=== PATIENT | female | born 1940 | race Caucasian/White ===

== ENCOUNTER → 2017-02-26 | Outpatient (CLI) | payer MEDICARE ==
[~2017-02-26] MED LIST: AMBI10TA PO; B-12100010 PO; FLUO20CA8 PO; FURO20TA2 PO; HYDR-3713 PO; LANTINJ4 SC; METO25TA74 PO; NEUR300C PO; NYST10CR TOP; PLAV75TA38 PO; PRAV20TA2 PO; PREG50CA PO; PROT20TA11 PO; SYNT175T2 PO; VESI10TA PO; VITAMIN B 12 PO
--- NOTE | 2017-02-26 13:21 | REP ---
Clinical: Lower extremity edema . Technique: Le scale and color Doppler evaluation using linear high frequency transducer. Findings: Ultrasound examination of the right and left lower extremity deep venous structures from the common femoral vein to the popliteal vein demonstrates normal compressibility flow and wave patterns in response to respiration and augmentation. There is no evidence for deep venous thrombosis. Diffuse subcutaneous edema and few scattered inguinal lymph nodes noted. Impression: No evidence for deep venous thrombosis. Signed by Sj Cabrales MD 02/26/2017 01:11 P
== END ==
LOC: M RAD 12:12
PROVIDERS: ATTEND Internal Medicine Cardiovascular Disease
DX: R60.0 Localized edema (principal); R06.02 Shortness of breath

== ENCOUNTER → 2017-02-27 | Outpatient (REF) | payer MEDICARE | LOC: M LAB REF 09:24 | PROVIDERS: ATTEND Internal Medicine Cardiovascular Disease | DX: D64.9 Anemia, unspecified (principal) ==

== ENCOUNTER → 2017-04-08 | Outpatient (REF) | payer MEDICARE ==
[~2017-04-08] MED LIST changes: +METO1TAB32 PO; -METO25TA74 PO; +PLAV1TAB2 PO; -PLAV75TA38 PO; -VESI10TA PO; +VESI10TA2 PO
== END ==
LOC: M SMT 17:17
PROVIDERS: ATTEND Urology
DX: Z85.51 Personal history of malignant neoplasm of bladder (principal); Z79.4 Long term (current) use of insulin; Z79.899 Other long term (current) drug therapy
CPT/HCPCS: 52000; 85610; 88108; G0463

== ENCOUNTER → 2017-05-26 | Outpatient (CLI) | payer MEDICARE ==
[2017-05-26 10:39] LABS: MEAN CORPUSCULAR HEMOGLOBIN 27.3 pg (27.0-33.0); MEAN CORPUSCULAR HGB CONC 32.1 g/dl (32.0-36.5); MEAN CORPUSCULAR VOLUME 85.1 fl (80.0-96.0); RED CELL DISTRIBUTION WIDTH 14.3 % (11.5-14.5); WHITE BLOOD COUNT 7.1 K/mm3 (4.0-10.0)
[2017-05-26 11:18] LABS: ALBUMIN 3.3 GM/DL (3.2-5.2); ALBUMIN/GLOBULIN RATIO 0.97 (1.00-1.93); BILIRUBIN,TOTAL 0.4 MG/DL (0.2-1.0); CALCIUM LEVEL 8.4 MG/DL (8.8-10.2); CREATININE FOR GFR 1.31 MG/DL (0.55-1.02); GLOMERULAR FILTRATION RATE 42.1 (>39); TOTAL PROTEIN 6.7 GM/DL (6.4-8.2)
[2017-05-26 11:20] LABS: POTASSIUM SERUM 5.3 MEQ/L (3.5-5.1)
== END ==
LOC: M LAB 09:58
PROVIDERS: ATTEND Family Medicine
DX: D64.9 Anemia, unspecified (principal); Z79.899 Other long term (current) drug therapy; E11.9 Type 2 diabetes mellitus without complications; R53.83 Other fatigue

== ENCOUNTER → 2017-07-06 | Outpatient (CLI) | payer MEDICARE ==
[~2017-07-06] MED LIST changes: +E-Z-GAS II EFFERVESCENT PACKET (SODIUM BICARB./CITRIC ACID/SIMETHICONE) As Ordered ONE; +E-Z-HD 98% w/w 340GM SUSP BTL As Ordered ONE; +E-Z-PAQUE 96% w/w SUSP 176GM BTL As Ordered ONE
--- NOTE | 2017-07-06 09:42 | REP ---
RIGHT UPPER QUADRANT SONOGRAPHY: HISTORY: Abdominal pain. Gastroesophageal reflux disease. COMPARISON: Right upper quadrant sonography, July 10, 2013. FINDINGS: Scanning through the right upper quadrant of the abdomen demonstrates tenderness to scanning over a normal sized gallbladder. Gallbladder wall is less than 3 mm thick. There is a 1.5 cm echogenic structure in the neck of the gallbladder consistent with a gallstone. This does not demonstrate acoustic shadowing however and, therefore, could be sludge. There is tenderness to scanning over the gallbladder. The common bile duct is mildly dilated at 8 mm. The portal vein is slightly prominent at 13.5 mm. No focal liver lesion is seen. The liver does not appear enlarged. There is no evidence of ascites. Limited views of the pancreas show no abnormality. The right kidney measures 11.3 x 5.4 x 4.0 cm. No hydronephrosis, mass, or cyst is seen. IMPRESSION: Cholelithiasis versus sludge ball. Dilated common bile duct, 8 mm. Borderline caliber portal vein. Signed by Fran Holliday MD 07/06/2017 03:27 P
--- NOTE | 2017-07-06 15:08 | REP ---
UPPER GI EXAMINATION: The procedure is performed by GM Parks under the direct supervision of the Dr. Holliday. All imaging was reviewed with Dr Holliday prior to dictation. The gym instructor film showed no organomegaly or pathological masses. The patient was able to ingest liquid barium and air in a quantity sufficient to produce a double contrast examination. The oral and pharyngeal stages of deglutition appeared unremarkable. Esophageal transport was prompt and efficient. The esophagus was rather patulous. There was hypercontractility of the distal portion of the esophagus. This hypercontractility is consistent with a history of esophagitis, correlate clinically. The patient has a history of gastric bypass. The visualized portion of the stomach pouch was normal. There was no evidence of gastritis, neoplasm or ulcerative disease. At fluoroscopy the visualized portion of the small bowel loops appeared somewhat dilated. Please correlate clinically. IMPRESSION: Hypercontractility of the esophagus in the distal portion consistent with a history of esophagitis. Postsurgical changes consistent with the patient's history of gastric bypass surgery. Somewhat patulous esophagus. Fluoroscopy time: 1 minute and 51 seconds were utilized for this procedure. Reviewed by GM Trivedi 07/08/2017 10:15 AEdited and Signed by Fran Holliday MD 07/08/2017 05:19 P
== END ==
LOC: M RAD 08:13
PROVIDERS: ATTEND Family Medicine
DX: R10.9 Unspecified abdominal pain (principal); K21.9 Gastro-esophageal reflux disease without esophagitis

== ENCOUNTER → 2018-04-05 | Outpatient (CLI) | payer OTHER ==
[2018-04-05 10:34] LABS: HEMATOCRIT 31.9 % (36.0-47.0); HEMOGLOBIN 10.1 g/dl (12.0-15.5); MEAN CORPUSCULAR HEMOGLOBIN 26.3 pg (27.0-33.0); MEAN CORPUSCULAR HGB CONC 31.7 g/dl (32.0-36.5); MEAN CORPUSCULAR VOLUME 83.1 fl (80.0-96.0); PLATELET COUNT, AUTOMATED 167 10^3/uL (150-450); RED BLOOD COUNT 3.84 10^6/uL (4.00-5.40); RED CELL DISTRIBUTION WIDTH 13.7 % (11.5-14.5); WHITE BLOOD COUNT 6.9 10^3/uL (4.0-10.0)
[2018-04-05 11:08] LABS: TOTAL 25(OH) VITAMIN D 26.4 NG/ML (30.0-100.0)
[2018-04-05 11:16] LABS: ALBUMIN 3.2 GM/DL (3.2-5.2); ALBUMIN/GLOBULIN RATIO 0.91 (1.00-1.93); ALKALINE PHOSPHATASE 78 U/L (45-117); ALT/SGPT 16 U/L (12-78); ANION GAP 8 MEQ/L (8-16); AST/SGOT 16 U/L (7-37); BILIRUBIN,TOTAL 0.3 MG/DL (0.2-1.0); BLOOD UREA NITROGEN 33 MG/DL (7-18); CALCIUM LEVEL 8.4 MG/DL (8.8-10.2); CARBON DIOXIDE LEVEL 31 MEQ/L (21-32); CHLORIDE LEVEL 105 MEQ/L (98-107); CHOLESTEROL LEVEL 140 MG/DL (<200); CHOLESTEROL RISK RATIO 2.413 (<5); CREATININE FOR GFR 1.76 MG/DL (0.55-1.30); GLOMERULAR FILTRATION RATE 29.9 (>39); GLUCOSE, FASTING 72 MG/DL (70-100); HDL CHOLESTEROL 58 MG/DL (>40); LDL CHOLESTEROL 65.6 MG/DL (<100); NON-HDL-C 82 MG/DL; POTASSIUM SERUM 4.8 MEQ/L (3.5-5.1); SODIUM LEVEL 144 MEQ/L (136-145); TOTAL PROTEIN 6.7 GM/DL (6.4-8.2); TRIGLYCERIDES LEVEL 82 MG/DL (<150)
[2018-04-05 11:30] LABS: ESTIMATED AVERAGE GLUCOSE 108 MG/DL (60-110); HEMOGLOBIN A1c 5.4 %
== END ==
LOC: M LAB 09:22
DX: D64.9 Anemia, unspecified (principal); E03.9 Hypothyroidism, unspecified; R53.83 Other fatigue
CPT/HCPCS: 84443

== ENCOUNTER → 2018-04-08 | Outpatient (CLI) | payer OTHER ==
[2018-04-08 14:11] LABS: ANION GAP 6 MEQ/L (8-16); BLOOD UREA NITROGEN 32 MG/DL (7-18); CALCIUM LEVEL 8.8 MG/DL (8.8-10.2); CARBON DIOXIDE LEVEL 32 MEQ/L (21-32); CHLORIDE LEVEL 106 MEQ/L (98-107); CREATININE FOR GFR 1.81 MG/DL (0.55-1.30); GLOMERULAR FILTRATION RATE 28.9 (>39); GLUCOSE, FASTING 78 MG/DL (70-100); NT-PRO BNP 3984 PG/ML (<450); POTASSIUM SERUM 4.3 MEQ/L (3.5-5.1); SODIUM LEVEL 144 MEQ/L (136-145); TROPONIN I < 0.02 NG/ML (< 0.10)
== END ==
LOC: M LAB 13:13
DX: I25.10 Atherosclerotic heart disease of native coronary artery without angina pectoris (principal)
CPT/HCPCS: 80048

== ENCOUNTER → 2018-04-26 | Outpatient (REF) | payer OTHER ==
[2018-04-26 18:28] LABS: ANION GAP 5 MEQ/L (8-16); BLOOD UREA NITROGEN 23 MG/DL (7-18); CALCIUM LEVEL 8.3 MG/DL (8.8-10.2); CARBON DIOXIDE LEVEL 30 MEQ/L (21-32); CHLORIDE LEVEL 108 MEQ/L (98-107); GLOMERULAR FILTRATION RATE 35.9 (>39); GLUCOSE, FASTING 77 MG/DL (70-100); POTASSIUM SERUM 4.9 MEQ/L (3.5-5.1); SODIUM LEVEL 143 MEQ/L (136-145)
== END ==
LOC: M LABDRAW1 17:23
DX: E03.9 Hypothyroidism, unspecified (principal)
CPT/HCPCS: 84443

== ENCOUNTER → 2018-05-19 | Outpatient (CLI) | payer OTHER ==
[~2018-05-19] MED LIST changes: -AMBI10TA PO; -B-12100010 PO; +E-Z-GAS II EFFERVESCENT PACKET (SODIUM BICARB./CITRIC ACID/SIMETHICONE) As Ordered; -E-Z-GAS II EFFERVESCENT PACKET (SODIUM BICARB./CITRIC ACID/SIMETHICONE) As Ordered ONE; +E-Z-HD 98% w/w 340GM SUSP BTL As Ordered; -E-Z-HD 98% w/w 340GM SUSP BTL As Ordered ONE; +E-Z-PAQUE 96% w/w SUSP 176GM BTL As Ordered; -E-Z-PAQUE 96% w/w SUSP 176GM BTL As Ordered ONE; -FLUO20CA8 PO; -FURO20TA2 PO; -HYDR-3713 PO; -LANTINJ4 SC; -METO1TAB32 PO; -NEUR300C PO; -NYST10CR TOP; -PLAV1TAB2 PO; -PRAV20TA2 PO; -PREG50CA PO; -PROT20TA11 PO; -SYNT175T2 PO; -VESI10TA2 PO; -VITAMIN B 12 PO
== END ==
LOC: M RAD 07:48
DX: K21.9 Gastro-esophageal reflux disease without esophagitis (principal); R13.10 Dysphagia, unspecified
CPT/HCPCS: 74241

== ENCOUNTER → 2018-05-26 | Outpatient (CLI) | payer OTHER ==
[2018-05-26 10:06] LABS: HEMATOCRIT 31.5 % (36.0-47.0); HEMOGLOBIN 9.8 g/dl (12.0-15.5); MEAN CORPUSCULAR HGB CONC 31.1 g/dl (32.0-36.5); MEAN CORPUSCULAR VOLUME 83.6 fl (80.0-96.0); PLATELET COUNT, AUTOMATED 170 10^3/uL (150-450); RED BLOOD COUNT 3.77 10^6/uL (4.00-5.40); RED CELL DISTRIBUTION WIDTH 13.8 % (11.5-14.5)
[2018-05-26 10:41] LABS: ESTIMATED AVERAGE GLUCOSE 111 MG/DL (60-110); HEMOGLOBIN A1c 5.5 %
[2018-05-26 10:42] LABS: ALBUMIN 3.2 GM/DL (3.2-5.2); ALBUMIN/GLOBULIN RATIO 0.84 (1.00-1.93); ALKALINE PHOSPHATASE 69 U/L (45-117); ALT/SGPT 10 U/L (12-78); ANION GAP 8 MEQ/L (8-16); AST/SGOT 15 U/L (7-37); BILIRUBIN,TOTAL 0.4 MG/DL (0.2-1.0); BLOOD UREA NITROGEN 42 MG/DL (7-18); CALCIUM LEVEL 8.6 MG/DL (8.8-10.2); CARBON DIOXIDE LEVEL 32 MEQ/L (21-32); CHLORIDE LEVEL 104 MEQ/L (98-107); CHOLESTEROL LEVEL 121 MG/DL (<200); CHOLESTEROL RISK RATIO 2.016 (<5); CREATININE FOR GFR 1.73 MG/DL (0.55-1.30); GLOMERULAR FILTRATION RATE 30.5 (>39); GLUCOSE, FASTING 84 MG/DL (70-100); HDL CHOLESTEROL 60 MG/DL (>40); LDL CHOLESTEROL 48.2 MG/DL (<100); NON-HDL-C 61 MG/DL; POTASSIUM SERUM 4.8 MEQ/L (3.5-5.1); SODIUM LEVEL 144 MEQ/L (136-145); THYROID STIMULATING HORMONE 0.048 uIU/ML (0.358-3.740); TRIGLYCERIDES LEVEL 64 MG/DL (<150)
[2018-05-26 11:49] LABS: TOTAL 25(OH) VITAMIN D 25.1 NG/ML (30.0-100.0)
== END ==
LOC: M LAB 09:15
DX: I10 Essential (primary) hypertension (principal); E11.9 Type 2 diabetes mellitus without complications; R53.83 Other fatigue
CPT/HCPCS: 84443

== ENCOUNTER → 2018-06-15 | Outpatient (REF) | payer OTHER ==
[2018-06-15 20:55] LABS: FERRITIN 44 NG/ML (8-252); IRON (FE) 23 UG/DL (50-170); TOTAL IRON BINDING CAPACITY 284 UG/DL (250-450)
[2018-06-15 22:41] LABS: PERCENT SATURATION 8.1 % (13.2-45.0)
== END ==
LOC: M LAB REF 17:41
DX: N18.4 Chronic kidney disease, stage 4 (severe) (principal); D50.9 Iron deficiency anemia, unspecified

== ENCOUNTER → 2018-06-15 | Outpatient (CLI) | payer OTHER | LOC: M RAD 15:16 | DX: J44.9 Chronic obstructive pulmonary disease, unspecified (principal); R06.00 Dyspnea, unspecified | CPT/HCPCS: 71046 ==

== ENCOUNTER → 2018-06-21 | Outpatient (CLI) | payer OTHER | LOC: M RAD 13:59 | DX: N18.4 Chronic kidney disease, stage 4 (severe) (principal) | CPT/HCPCS: 76775 ==

== ENCOUNTER → 2018-06-29 | Outpatient (REF) | payer OTHER ==
[2018-06-29 19:18] LABS: FERRITIN 31 NG/ML (8-252); FREE T4 1.43 NG/DL (0.76-1.46); IRON (FE) 58 UG/DL (50-170); PERCENT SATURATION 23.9 % (13.2-45.0); THYROID STIMULATING HORMONE 0.043 uIU/ML (0.358-3.740); TOTAL IRON BINDING CAPACITY 243 UG/DL (250-450)
== END ==
LOC: M LAB REF 17:15
DX: N18.4 Chronic kidney disease, stage 4 (severe) (principal); D50.9 Iron deficiency anemia, unspecified; E03.9 Hypothyroidism, unspecified
CPT/HCPCS: 83550

== ENCOUNTER → 2018-07-08 | Outpatient (CLI) | payer OTHER | LOC: M RAD 10:18 | DX: J18.9 Pneumonia, unspecified organism (principal); J90 Pleural effusion, not elsewhere classified | CPT/HCPCS: 71046 ==

== ENCOUNTER → 2018-07-14 | Outpatient (REF) | payer OTHER ==
[2018-07-14 16:31] LABS: THYROID STIMULATING HORMONE 0.024 uIU/ML (0.358-3.740)
== END ==
LOC: M LABDRAW1 11:53
DX: E03.9 Hypothyroidism, unspecified (principal)
CPT/HCPCS: 84443

== ENCOUNTER → 2019-04-11 | Outpatient (CLI) | payer OTHER ==
[~2019-04-11] MED LIST changes: +AMBI10TA PO; +B-12100010 PO; -E-Z-GAS II EFFERVESCENT PACKET (SODIUM BICARB./CITRIC ACID/SIMETHICONE) As Ordered; +E-Z-GAS II EFFERVESCENT PACKET (SODIUM BICARB./CITRIC ACID/SIMETHICONE) As Ordered ONE; -E-Z-HD 98% w/w 340GM SUSP BTL As Ordered; +E-Z-HD 98% w/w 340GM SUSP BTL As Ordered ONE; -E-Z-PAQUE 96% w/w SUSP 176GM BTL As Ordered; +E-Z-PAQUE 96% w/w SUSP 176GM BTL As Ordered ONE; +FLUO20CA8 PO; +FURO20TA2 PO; +HYDR-3713 PO; +LANTINJ4 SC; +METO1TAB32 PO; +NEUR300C PO; +NYST100029 TOP; +PLAV1TAB2 PO; +PRAV20TA2 PO; +PREG50CA PO; +PROT20TA11 PO; +SYNT175T2 PO; +VESI10TA2 PO; +VITAMIN B 12 PO
--- NOTE | 2019-04-12 20:35 | REP ---
Examination Requested: Esophagram Barium Swallow Reason For Exam/Comment: Type 2 diabetes, dysphasia Esophagram: The procedure was performed GM Yoder, under the direct supervision of Dr. Le. The images were reviewed with Dr. Le. A single PA chest x-ray is submitted as a superintendent local film. The superior mediastinal structures are midline. The heart size is within normal limits. The lungs are clear. Post surgical hardware is visualized along the mediastinum. Liquid barium was given in the erect position as well as liquid barium in the prone oblique position, in order to perform a single contrast esophagram examination. Oral and pharyngeal stages of the examination were unremarkable. A tiny Zenker's diverticulum is visualized. Esophageal transport is efficient and there is no esophagitis, stricture, or mucosal ring noted. Tertiary waves were noted throughout the course of the exam. There is no hiatal hernia noted. Gastroesophageal reflux was not visualized throughout the course of the exam. Impression: 1. Tiny Zenker's diverticulum. 2. Tertiary waves noted throughout the exam. 0.6 minutes of fluoroscopy time was utilized for this procedure. Some fluoroscopic images are performed with last image hold technology. These images require no additional radiation. Reviewed by GM Cao 04/11/2019 04:38 P Electronically Signed by Gus Le MD 04/12/2019 08:26 P
== END ==
LOC: M RAD 09:26
PROVIDERS: ATTEND Family Medicine
DX: E11.9 Type 2 diabetes mellitus without complications (principal); R13.10 Dysphagia, unspecified

== ENCOUNTER → 2019-04-11 | Outpatient (CLI) | payer OTHER ==
[~2019-04-11] MED LIST changes: -E-Z-GAS II EFFERVESCENT PACKET (SODIUM BICARB./CITRIC ACID/SIMETHICONE) As Ordered ONE; -E-Z-HD 98% w/w 340GM SUSP BTL As Ordered ONE; -E-Z-PAQUE 96% w/w SUSP 176GM BTL As Ordered ONE
--- NOTE | 2019-04-11 14:02 | REP ---
LEFT SHOULDER, THREE VIEWS: There is no evidence of an acute fracture, dislocation or intrinsic bone disease. IMPRESSION: No fracture or dislocation.
== END ==
LOC: M CLY 13:22
PROVIDERS: ATTEND Nurse Practitioner Family
DX: M25.512 Pain in left shoulder (principal)
CPT/HCPCS: 73030; 74220; G0463

== ENCOUNTER → 2019-04-28 | Outpatient (CLI) | payer OTHER ==
[2019-04-28 14:08] LABS: CALCIUM LEVEL 8.5 MG/DL (8.8-10.2); CREATININE FOR GFR 2.3 MG/DL (0.55-1.30); GLOMERULAR FILTRATION RATE 21.9 (>39); POTASSIUM SERUM 5.4 MEQ/L (3.5-5.1); THYROID STIMULATING HORMONE 0.157 uIU/ML (0.358-3.740)
== END ==
LOC: M LAB 12:42
PROVIDERS: ATTEND Internal Medicine Endocrinology, Diabetes & Metabolism
DX: E11.22 Type 2 diabetes mellitus with diabetic chronic kidney disease (principal); E03.9 Hypothyroidism, unspecified

== ENCOUNTER 2019-05-08 10:09 | Emergency (ER) | payer OTHER ==
[~2019-05-08] VITALS: Ht 149.9 cm; Wt 70.5 kg
[~2019-05-08 10:09] MED LIST changes: +FLUO20CA20 PO; -FLUO20CA8 PO
[2019-05-08 10:51] LABS: BASO % 0.2 % (0.0-1.0); EOS # 0.2 10^3/uL (0.0-0.50); EOS % 3.7 % (0.0-3.0); HEMATOCRIT 33.6 % (36.0-47.0); HEMOGLOBIN 10.7 g/dl (12.0-15.5); LYMPH # 0.9 10^3/uL (1.5-4.5); LYMPH % 13.8 % (24.0-44.0); MEAN CORPUSCULAR HEMOGLOBIN 28.5 pg (27.0-33.0); MEAN CORPUSCULAR HGB CONC 31.8 g/dl (32.0-36.5); MEAN CORPUSCULAR VOLUME 89.4 fl (80.0-96.0); MONO # 0.5 10^3/uL (0.0-0.8); MONO % 7.3 % (0.0-5.0); NEUTROPHILS # 4.7 10^3/uL (1.8-7.7); NEUTROPHILS % 74.7 % (36.0-66.0); PLATELET COUNT, AUTOMATED 130 10^3/uL (150-450); RED BLOOD COUNT 3.76 10^6/uL (4.00-5.40); WHITE BLOOD COUNT 6.3 10^3/uL (4.0-10.0)
[2019-05-08 11:00] LABS: INR 1.11
[2019-05-08 11:01] LABS: PARTIAL THROMBOPLASTIN TIME 30.6 SECONDS (25.0-38.4)
--- NOTE | 2019-05-08 11:10 | REP ---
CHEST, PORTABLE: AP portable view of the chest is performed and compared to a prior study of 07/08/2018. There is bibasilar fibrotic change which is stable. Mild left pleural thickening inferiorly is also stable. No new infiltrates are seen. Heart is slightly prominent, but may be magnified. There is mild calcification of the thoracic aorta. The mediastinal silhouette is unchanged. Multiple sternal wires are present. IMPRESSION: Stable chronic changes with no new infiltrate. Electronically Signed by Gus Le MD 05/10/2019 07:43 A
[2019-05-08 11:19] LABS: ALBUMIN 3.3 GM/DL (3.2-5.2); ALT/SGPT 14 U/L (12-78); BILIRUBIN,DIRECT < 0.1 MG/DL (0.0-0.2); BILIRUBIN,TOTAL 0.3 MG/DL (0.2-1.0); BLOOD UREA NITROGEN 34 MG/DL (7-18); CARBON DIOXIDE LEVEL 29 MEQ/L (21-32); CHLORIDE LEVEL 106 MEQ/L (98-107); CK-MB VALUE MASS 2.7 NG/ML (<3.6); CPK CREATINE PHOSPHOKINASE 64 U/L (26-192); GLOMERULAR FILTRATION RATE 27.3 (>39); GLUCOSE, FASTING 102 MG/DL (70-100); LIPASE 400 U/L (73-393); MB/CK RELATIVE INDEX 4.22 (< OR =4); POTASSIUM SERUM 4.2 MEQ/L (3.5-5.1); SODIUM LEVEL 140 MEQ/L (136-145); TOTAL PROTEIN 7.3 GM/DL (6.4-8.2); TROPONIN I 0.27 NG/ML (< 0.10)
[2019-05-08] MEDS ORDERED: NS 1,000 ML IV ONE (13:30)
[2019-05-08] MEDS ORDERED: ASPIRIN 81 MG CHEW TABLET PO ONE (13:30)
[2019-05-08 14:13] LABS: APPEARANCE, URINE CLEAR (CLEAR); BACTERIA, URINE AUTO 1+ (NEGATIVE); BILIRUBIN, URINE AUTO NEGATIVE (NEGATIVE); BLOOD, URINE BLOOD NEGATIVE (NEGATIVE); COLOR, URINE YELLOW (YELLOW); GLUCOSE, URINE (UA) AUTO NEGATIVE (NEGATIVE); KETONE, URINE AUTO NEGATIVE (NEGATIVE); LEUKOCYTE ESTERASE, URINE AUTO 1+ (NEGATIVE); NITRITE, URINE AUTO NEGATIVE (NEGATIVE); PROTEIN, URINE AUTO 1+ mg/dL (NEGATIVE); RBC, URINE AUTO 3 /HPF (0-3); SQUAMOUS EPITHELIAL CELL UR AU 5 /HPF (0-6); UROBILINOGEN, URINE AUTO 0.2 mg/dL (0.0-2.0); WBC, URINE AUTO 15 /HPF (0-3)
[2019-05-08] MEDS ORDERED: CLOPIDOGREL 75 MG TAB PO ONE (16:00)
[2019-05-08] MEDS ORDERED: HEPARIN DRIP 25,000 UNITS in IV 1 EA IV SCH (16:11)
[2019-05-08] MEDS ORDERED: HEPARIN SOD (PORCINE) 5000 UNITS/ML VIAL IV ONE (16:15)
[2019-05-08 17:01] LABS: CK-MB VALUE MASS 2.5 NG/ML (<3.6); MB/CK RELATIVE INDEX 4.03 (< OR =4); TROPONIN I 0.25 NG/ML (< 0.10)
[2019-05-08 18:39] VITALS: BP 125/67
--- NOTE | 2019-05-08 19:57 | ECGEPIP ---
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
--- NOTE | 2019-05-08 20:14 | ECGEPIP ---
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
== END 2019-05-08 18:52 | disposition short-term general hospital (02) ==
LOC: M ED 10:09
DX: R07.9 Chest pain, unspecified (principal); N18.9 Chronic kidney disease, unspecified; R00.1 Bradycardia, unspecified; I25.10 Atherosclerotic heart disease of native coronary artery without angina pectoris; I25.2 Old myocardial infarction; I10 Essential (primary) hypertension; F32.9 Major depressive disorder, single episode, unspecified; Z87.891 Personal history of nicotine dependence; Z95.5 Presence of coronary angioplasty implant and graft; Z79.4 Long term (current) use of insulin; Z79.899 Other long term (current) drug therapy; Z88.0 Allergy status to penicillin

== ENCOUNTER → 2019-07-07 | Outpatient (REF) | payer OTHER ==
[~2019-07-07] MED LIST changes: -FLUO20CA20 PO; +FLUO20CA8 PO
[2019-07-07 14:08] LABS: PERCENT SATURATION 19.2 % (13.2-45.0)
== END ==
LOC: M LAB REF 13:07
PROVIDERS: ATTEND Internal Medicine Nephrology
DX: N18.4 Chronic kidney disease, stage 4 (severe) (principal); D50.9 Iron deficiency anemia, unspecified

== ENCOUNTER 2019-07-21 10:28 | Outpatient (CLI) | payer OTHER ==
[~2019-07-21] VITALS: Ht 152.4 cm; Wt 74.0 kg
[2019-07-21 10:49] VITALS: BP 134/64
[2019-07-21 11:26] VITALS: BP 125/60
[2019-07-21] MEDS ORDERED: FERRIC CARBOXYMALTOSE INJ 750 MG in NS 250 ML IV ONE (12:00)
[2019-07-21 12:30] VITALS: BP 125/58
[2019-07-21 12:45] VITALS: BP 106/51
[2019-07-21 13:30] VITALS: BP 102/54
[2019-07-21 14:00] VITALS: BP 120/57
== END 2019-07-21 14:00 | disposition home or self-care (01) ==
LOC: M INFU 10:28
PROVIDERS: ATTEND Internal Medicine Nephrology
DX: D50.9 Iron deficiency anemia, unspecified (principal); Z88.0 Allergy status to penicillin
CPT/HCPCS: 96365; 96366; J1439